=== PATIENT | female | born 2000 | race Caucasian/White ===

== ENCOUNTER 2019-03-02 12:30 | Emergency (ER) | payer MEDICAID ==
[~2019-03-02] VITALS: Ht 165.1 cm; Wt 57.7 kg
--- NOTE | 2019-03-02 12:57 | NUR ---
PT C/O CRAMPING SINCE THIS AM. PT DENIES ANY BLEEDING TODAY. Reports 1 time of vaginal spotting noticed with wiping yesterday LMP early november (" i think 12/01/18") g3, p2 Reports she had a seizure last and has not f/u-provider made aware Good color, vss
--- NOTE | 2019-03-02 13:09 | NUR ---
Ua sent to lab Lab at bedside-obtained specimens as well Patient then to Ultrasound at 1308p
[2019-03-02] MEDS ORDERED: PREN1TAB28 PO (13:13)
[2019-03-02 13:15] LABS: BASOPHILS # (AUTO) 0.07 x10^3/uL (0-0.3); BASOPHILS % (AUTO) 1 % (0-1); EOSINOPHILS # (AUTO) 0.17 x10^3/uL (0-0.8); EOSINOPHILS % (AUTO) 2 % (1-7); LYMPHOCYTES # (AUTO) 2.21 x10^3/uL (1-6.1); LYMPHOCYTES % (AUTO) 22 % (22-44); MD NO; MEAN CORPUSCULAR HEMOGLOBIN 25.9 pg (27.0-34.8); MEAN CORPUSCULAR VOLUME 81.2 fL (80-100); MEAN PLATELET VOLUME 9.7 fL (7.4-10.4); MONOCYTES % (AUTO) 4 % (2-9); NEUTROPHILS # (AUTO) 7.28 x10^3/uL (1.8-8.0); NEUTROPHILS % (AUTO) 72 % (42-75); PLATELET COUNT 237 x10^3/uL (130-400); RED BLOOD COUNT 4.61 x10^6/uL (3.82-5.3); RED CELL DISTRIBUTION WIDTH 17.3 % (9.6-15.2)
[2019-03-02 13:23] LABS: MICROSCOPIC INDICATED
[2019-03-02 13:29] LABS: CULTURE INDICATED? NO
[2019-03-02 13:56] VITALS: BP 119/80
== END 2019-03-02 13:57 | disposition home or self-care (01) ==
LOC: ED 13:51
DX: O20.0 Threatened abortion (principal); Z3A.10 10 weeks gestation of pregnancy
CPT/HCPCS: 36415; 76801; 81001; 84702; 85025; 86901; 99284

== ENCOUNTER 2020-07-23 17:56 | Emergency (ER) | payer MEDICAID ==
[~2020-07-23] VITALS: Ht 165.1 cm; Wt 63.5 kg
[~2020-07-23 17:56] MED LIST: PREN1TAB28 PO
[2020-07-23 18:00] VITALS: BP 122/92
[2020-07-23] MEDS ORDERED: BUPIVACAINE 0.25% ONE (19:10)
[2020-07-23] MEDS ORDERED: LIDOCAINE-MPF 1%, 5ML INFIL ONE (19:30)
[2020-07-23] MEDS ORDERED: BUPIVACAINE 0.25% INFIL ONE (19:30)
== END 2020-07-23 19:25 | disposition home or self-care (01) ==
LOC: ED 18:15
DX: K04.7 Periapical abscess without sinus (principal); R51.9 Headache, unspecified; F17.210 Nicotine dependence, cigarettes, uncomplicated; F12.10 Cannabis abuse, uncomplicated; Z72.9 Problem related to lifestyle, unspecified
CPT/HCPCS: 64400; 99284; 99406